=== PATIENT | male | born 1980 | race African-American/Black ===

== ENCOUNTER 2016-10-18 07:45 | Emergency (ER) | payer SELFPAY ==
[~2016-10-18] VITALS: Ht 185.4 cm; Wt 107.0 kg
[~2016-10-18 07:45] MED LIST: IBUP800T23 PO; ROBA750T3 PO
[2016-10-18 07:47] VITALS: BP 127/81; PULSE 86; RESP 16; TEMP 98; O2SAT 100
[2016-10-18] MEDS ORDERED: SODIUM CHLOR 0.9% 1000 ML INJ 1,000 ML IV SCH (07:53)
[2016-10-18 07:55] VITALS: RESP 16; O2SAT 100
[2016-10-18] MEDS ORDERED: SODIUM CHLORIDE 0.9% FLUSH 5 ML FLUSH IVF PRN (08:00)
[2016-10-18] MEDS ORDERED: ONDANSETRON HCL 4 MG/2 ML VIAL IVP ONE (08:00)
[2016-10-18] MEDS ORDERED: KETOROLAC TROMETHAMINE 30 MG/ML (IVP) VIAL IV PUSH ONE (08:15)
[2016-10-18 08:23] LABS: AUTOMATED NEUTROPHIL # 4.1 TH/MM3 (1.8-7.7); BASOPHIL # 0.1 TH/MM3 (0-0.2); BASOPHIL % 0.8 % (0.0-2.0); EOSINOPHIL # 0.5 TH/MM3 (0-0.4); EOSINOPHIL % 6.7 % (0.0-4.0); HEMATOCRIT 40.7 % (39.0-51.0); HEMO FLAGS DIFF FINAL; LYMPH % 25.2 % (9.0-44.0); LYMPHOCYTE # 1.9 TH/MM3 (1.0-4.8); MEAN CELL VOLUME 85.9 FL (80.0-100.0); MEAN CORPUSCULAR HEMOGLOBIN 28.7 PG (27.0-34.0); MEAN CORPUSCULAR HGB CONC 33.5 % (32.0-36.0); MONO % 11.6 % (0.0-8.0); NEUT % 55.7 % (16.0-70.0); PLATELET COUNT 245 TH/MM3 (150-450); RED BLOOD COUNT 4.74 MIL/MM3 (4.50-5.90); RED CELL DISTRIBUTION WIDTH 15.5 % (11.6-17.2); WHITE BLOOD COUNT 7.4 TH/MM3 (4.0-11.0)
[2016-10-18 08:36] LABS: ANION GAP 8 MEQ/L (5-15); AST (GOT) 23 U/L (15-37); BICARBONATE 27.2 MEQ/L (21.0-32.0); BLOOD UREA NITROGEN 13 MG/DL (7-18); CHLORIDE 105 MEQ/L (98-107); GLOMERULAR FILTRATION RATE 95 ML/MIN (>89); POTASSIUM 3.9 MEQ/L (3.5-5.1); SODIUM (NA) 140 MEQ/L (136-145)
[2016-10-18 08:39] LABS: ALKALINE PHOSPHATASE 55 U/L (45-117); ALT (GPT) 22 U/L (12-78); TOTAL BILIRUBIN ADULT 0.2 MG/DL (0.2-1.0)
--- NOTE | 2016-10-18 09:06 | RADRPT ---
EXAM DATE/TIME: 10/18/2016 08:21 [place] COMPARISON: No previous studies available for comparison. INDICATIONS : Short of breath. Patient c/o coughing, and vomiting off and on. MEDICAL HISTORY : None. SURGICAL HISTORY : None. ENCOUNTER: Initial ACUITY: 3 weeks PAIN SCORE: 0/10 LOCATION: Bilateral chest FINDINGS: A single view of the chest demonstrates the lungs to be symmetrically aerated without evidence of mas s, infiltrate or effusion. The cardiomediastinal contours are unremarkable. Osseous structures are intact. CONCLUSION: No acute disease. Dakota Dietz MD on October 18, 2016 at 9:04 Board Certified Radiologist. This report was verified electronically.
[2016-10-18] MEDS ORDERED: BENZ100 PO (09:36)
--- NOTE | 2016-10-18 09:36 | PD ---
HPI Chief Complaint: GI Complaint Time Seen by Provider: 08:02 Travel History International Travel<30 days: No Contact w/Intl Traveler<30days: No Traveled to known affect area: No History of Present Illness HPI Patient is a 36-year-old healthy male who presents the emergency department with complaint of vomiting. Patient states that he has been ill with upper respiratory type infectious symptoms for the better part of 1-2 weeks. States that he coughs so hard that he vomits. There is some loose stool, but no hamilton diarrhea associated with this. No abdominal pain. Notes subjective fevers, chills. No recent travel or sick contacts. Cough is productive of clear to yellow sputum. No known exposure to pertussis. PFSH Past Medical History Medical History: Denies Significant Hx Diminished Hearing: No Past Surgical History Surgical History: No Previous Surgery Social History Alcohol Use: Yes (SOCIAL) Tobacco Use: No Substance Use: No Allergies-Medications (Allergen,Severity, Reaction): Coded Allergies: Seafood (Verified Allergy, Severe, [place], 10/18/16) Reported Meds & Prescriptions Reported Meds & Active Scripts Active No Active Prescriptions or Reported Medications Review of Systems Except as stated in HPI: all other systems reviewed are Neg Physical Exam Narrative GENERAL: well-appearing male in no acute distress SKIN: Warm and dry. HEAD: Normocephalic. EYES: No scleral icterus. No injection or drainage. ENT: . Mucous membranes pink and moist. NECK: supple CARDIOVASCULAR: Regular rate and rhythm. No murmur appreciated. RESPIRATORY: No accessory muscle use. Clear to auscultation. Breath sounds equal bilaterally. GASTROINTESTINAL: Abdomen soft, non-tender, nondistended. obese MUSCULOSKELETAL: normal gait NEUROLOGICAL: Awake and alert. Normal speech. PSYCHIATRIC: Appropriate mood and affect; insight and judgment normal. Data Data Last Documented VS Vital Signs Date Time Temp Pulse Resp B/P Pulse Ox O2 Delivery O2 Flow Rate FiO2 10/18/16 07:55 16 100 10/18/16 07:47 98.0 86 127/81 Orders Complete Blood Count With Diff (10/18/16 07:53) Comprehensive Metabolic Panel (10/18/16 07:53) Lipase (10/18/16 07:53) Iv Access Insert/Monitor (10/18/16 07:53) Ecg Monitoring (10/18/16 07:53) Oximetry (10/18/16 07:53) Ondansetron Inj (Zofran Inj) (10/18/16 08:00) Sodium Chlor 0.9% 1000 Ml Inj (Ns 1000 M (10/18/16 07:53) Sodium Chloride 0.9% Flush (Ns Flush) (10/18/16 08:00) Influenzae A/B Antigen (10/18/16 08:05) Chest, Single Ap (10/18/16 08:05) Ketorolac Inj (Toradol Inj) (10/18/16 08:15) Labs Laboratory Tests Test 10/18/16 08:05 White Blood Count 7.4 TH/MM3 Red Blood Count 4.74 MIL/MM3 Hemoglobin 13.6 GM/DL Hematocrit 40.7 % Mean Corpuscular Volume 85.9 FL Mean Corpuscular Hemoglobin 28.7 PG Mean Corpuscular Hemoglobin 33.5 % Concent Red Cell Distribution Width 15.5 % Platelet Count 245 TH/MM3 Mean Platelet Volume 8.6 FL Neutrophils (%) (Auto) 55.7 % Lymphocytes (%) (Auto) 25.2 % Monocytes (%) (Auto) 11.6 % Eosinophils (%) (Auto) 6.7 % Basophils (%) (Auto) 0.8 % Neutrophils # (Auto) 4.1 TH/MM3 Lymphocytes # (Auto) 1.9 TH/MM3 Monocytes # (Auto) 0.9 TH/MM3 Eosinophils # (Auto) 0.5 TH/MM3 Basophils # (Auto) 0.1 TH/MM3 CBC Comment DIFF FINAL Differential Comment Sodium Level 140 MEQ/L Potassium Level 3.9 MEQ/L Chloride Level 105 MEQ/L Carbon Dioxide Level 27.2 MEQ/L Anion Gap 8 MEQ/L Blood Urea Nitrogen 13 MG/DL Creatinine 1.08 MG/DL Estimat Glomerular Filtration 95 ML/MIN Rate Random Glucose 105 MG/DL Calcium Level 8.8 MG/DL Total Bilirubin 0.2 MG/DL Aspartate Amino Transf 23 U/L (AST/SGOT) Alanine Aminotransferase 22 U/L (ALT/SGPT) Alkaline Phosphatase 55 U/L Total Protein 7.9 GM/DL Albumin 3.7 GM/DL Lipase 113 U/L MDM Medical Decision Making Medical Screen Exam Complete: Yes Emergency Medical Condition: Yes Medical Record Reviewed: Yes Differential Diagnosis 36-year-old male with 1-2 weeks of flulike symptoms and cough with posttussive emesis. Differential includes viral syndrome, influenza, pneumonia, pertussis, dehydration, electrolyte abnormality and less likely peritoneal pathology. Narrative Course Patient placed on monitor, IV established and blood obtained. Given 1 L normal saline bolus, 30 mg Toradol, 4 mg Zofran. CBC, CMP, lipase, influenza were all negative. Portable chest x-ray obtained that by my read shows no acute abnormalities. Patient was reassured and will be discharged home with Tespatrick Quinn to help with his cough. Diagnosis Primary Impression: Upper respiratory infection Qualified Code: J06.9 - Viral upper respiratory tract infection Additional Impression: Post-tussive emesis Referrals: Primary Care Physician as needed Additional Instructions: Tessalon Perles as prescribed as needed for cough. You may also use Sudafed, Mucinex [id number]. Chest x-ray and blood work, influenza tests were negative today. Symptoms are consistent with upper respiratory infection, cold. This will need to run its course with time. Med/Other Pt SpecificInfo: Prescription(s) given Scripts Benzonatate (Tessalon Perles)100 Mg [id number] Mg PO TID PRN (COUGH) #10 CAP Ref 0 Prov:Odalys Malik MD 10/18/16 Disposition: 01 DISCHARGE HOME Condition: Stable Odalys Malik MD Oct 18, 2016 09:36
[2016-10-18 09:38] VITALS: RESP 16
== END 2016-10-18 09:51 | disposition home or self-care (01) ==
LOC: NEPE 07:45
DX: J06.9 Acute upper respiratory infection, unspecified (principal); R11.10 Vomiting, unspecified
CPT/HCPCS: 71010; 80053; 83690; 85025; 87804; 96361; 96374; 96375; 99283; J1885; J2405; J7030